=== PATIENT | female | born 1950 | race Caucasian/White ===

== ENCOUNTER 2016-09-22 17:39 | Inpatient (IN) | payer MEDICARE ==
[2016-09-22 18:26] LABS: BASOPHIL 0.4 % (0-2); EOSINOPHIL 0 % (0-7); HCT 23.5 % (37.0-47.0); HGB 6.7 g/dl (12.5-16.0); MCH 19.2 pg (25.0-31.0); MCHC 28.5 g/dL (32.0-36.0); MCV 67.3 fL (78.0-100.0); MONOCYTE 8.2 % (0-12); MPV 11.1 fL (6.0-9.5); NEUTROPHIL 63.4 % (41-80); PLT 383 K/uL (150-400); RDW 20.1 % (11.5-14.0); WBC 7.8 K/uL (4.0-10.5)
[2016-09-22 18:31] LABS: INR 1.11 (0.9-1.2); PROTHROMBIN TIME 13.9 SECONDS (11.7-14.0); PTT 28.1 SECONDS (23.2-31.4)
[2016-09-22 18:32] LABS: RBC 3.49 M/uL (4.20-5.40)
[2016-09-22 18:40] LABS: ALBUMIN 4.7 g/dL (3.4-4.8); BILIRUBIN - TOTAL 0.4 mg/dL (0.1-1.0); CREATININE 1.2 mg/dL (0.5-1.0); GLOBULIN (CALCULATION) 2.2 g/dL (2.2-4.2); POTASSIUM 3.8 mmol/L (3.5-5.1); TOTAL PROTEIN 6.9 g/dL (6.4-8.3)
[2016-09-23 00:37] LABS: FOLIC ACID (SERUM) > 20.0 ng/mL (5.6-45.8)
[2016-09-23 09:26] LABS: MCH 21.8 pg (25.0-31.0); MCHC 30.6 g/dL (32.0-36.0); MCV 71.1 fL (78.0-100.0); MPV 10.4 fL (6.0-9.5); RBC 4.32 M/uL (4.20-5.40); WBC 4.9 K/uL (4.0-10.5)
[2016-09-23 09:27] LABS: HCT 30.7 % (37.0-47.0); HGB 9.4 g/dl (12.5-16.0)
[2016-09-23 09:43] LABS: POTASSIUM 3.9 mmol/L (3.5-5.1)
[2016-09-23 18:53] LABS: HGB 10.4 g/dl (12.5-16.0); MCH 21.6 pg (25.0-31.0); MCHC 30.6 g/dL (32.0-36.0); MCV 70.7 fL (78.0-100.0); MPV 10.4 fL (6.0-9.5); RBC 4.81 M/uL (4.20-5.40); WBC 7.3 K/uL (4.0-10.5)
[2016-09-24 04:49] LABS: HCT 33.2 % (37.0-47.0); HGB 10.2 g/dl (12.5-16.0); MCH 21.5 pg (25.0-31.0); MCHC 30.7 g/dL (32.0-36.0); MPV 10.6 fL (6.0-9.5); RBC 4.74 M/uL (4.20-5.40); RDW 22.3 % (11.5-14.0); WBC 6.7 K/uL (4.0-10.5)
[2016-09-24 05:02] LABS: CREATININE 1.1 mg/dL (0.5-1.0); POTASSIUM 3.8 mmol/L (3.5-5.1)
[2016-09-24] MEDS ORDERED: LOSARTAN-HCTZ1 EAC2 PO (15:58)
[2016-09-24] MEDS ORDERED: CLARITIN10 MG PO (15:58)
[2016-09-24] MEDS ORDERED: NORVASC5 MG PO (15:59)
[2016-09-24] MEDS ORDERED: ASPIRIN CHEWABL81 MG PO (15:59)
[2016-09-24] MEDS ORDERED: VITAMIN B-121000 MC1 PO (15:59)
[2016-09-24] MEDS ORDERED: IRON325 M1 PO (16:00)
[2016-09-24] MEDS ORDERED: CALCIUM600 MG PO (16:00)
== END 2016-09-24 17:35 | disposition home or self-care (01) | DRG 375 ==
LOC: FER 17:39 → FMS 19:25
PROVIDERS: Internal Medicine; Nurse Practitioner; Surgery; ADMIT Internal Medicine Nephrology
PROC: 30233N1 Transfusion of Nonautologous Red Blood Cells into Peripheral Vein, Percutaneous Approach (ICD-10-PCS; principal; 2016-09-22)
PROC: 0DBH8ZX Excision of Cecum, Via Natural or Artificial Opening Endoscopic, Diagnostic (ICD-10-PCS; 2016-09-24)
PROC: 0DB78ZX Excision of Stomach, Pylorus, Via Natural or Artificial Opening Endoscopic, Diagnostic (ICD-10-PCS; 2016-09-24 09:15)
PROC: 0DB58ZX Excision of Esophagus, Via Natural or Artificial Opening Endoscopic, Diagnostic (ICD-10-PCS; 2016-09-24 09:15)
DX: C18.0 Malignant neoplasm of cecum (principal); D62 Acute posthemorrhagic anemia; N17.9 Acute kidney failure, unspecified; K92.2 Gastrointestinal hemorrhage, unspecified; I10 Essential (primary) hypertension; K29.60 Other gastritis without bleeding; D50.9 Iron deficiency anemia, unspecified; R73.9 Hyperglycemia, unspecified; K44.9 Diaphragmatic hernia without obstruction or gangrene; Z88.2 Allergy status to sulfonamides; Z88.3 Allergy status to other anti-infective agents; Z88.1 Allergy status to other antibiotic agents; J30.9 Allergic rhinitis, unspecified
CPT/HCPCS: 36415; 36430; 80048; 80053; 82378; 82607; 82728; 82746; 83036; 83540; 85025; 85610; 85730; 86850; 86900; 86901; 86922; 87339; 88305; 88312; 93005; C9113; J2704; P9016